=== PATIENT | male | born 1960 | race Caucasian/White ===

== ENCOUNTER → 2022-04-10 | Outpatient (CLI) | payer MEDICAID, MEDICARE ==
--- NOTE | 2022-04-10 18:09 | Diagnostic Imaging Report ---
INDICATION: Abdominal distention EXAM: 2 abdominal radiographs are performed. FINDINGS: There are pelvic phleboliths. The bowel gas pattern unremarkable. No suspicious or acute appearing abnormalities. IMPRESSION: Unremarkable abdominal radiographs. Dictated by: Dictated on workstation # [id number]
== END ==
LOC: RAD 13:22
PROVIDERS: ATTEND Family Medicine
DX: R14.0 Abdominal distension (gaseous) (principal); R10.9 Unspecified abdominal pain
CPT/HCPCS: 74018

== ENCOUNTER → 2022-06-13 | Outpatient (CLI) | payer MEDICAID ==
--- NOTE | 2022-06-13 16:03 | Diagnostic Imaging Report ---
INDICATION: PAIN COMPARISON: None. FINDINGS: 3 views of the right ankle were obtained. There is no acute fracture or dislocation. No focal osseous lesions are seen. There is moderate generalized soft tissue swelling. There are no radiopaque foreign bodies. IMPRESSION: 1. Moderate generalized soft tissue swelling, but no evidence of acute fracture or dislocation Dictated by: Dictated on workstation # [id number]
== END ==
LOC: RAD 13:58
PROVIDERS: ATTEND Family Medicine
DX: M25.471 Effusion, right ankle (principal); M25.571 Pain in right ankle and joints of right foot
CPT/HCPCS: 73610

== ENCOUNTER 2022-07-18 12:37 | Emergency (ER) | payer MEDICARE, OTHER, MEDICAID ==
[~2022-07-18] VITALS: Ht 170 cm; Wt 103.0 kg
--- NOTE | 2022-07-18 13:44 | ED General ---
General Chief Complaint: General Problems/Pain Stated Complaint: SOB | TURNED BLUE IN FACE WHILE SLEEPING Nursing Triage Note: PT ARRIVED VIA AMB FROM [facility]. STAFF STATES HIS FACE WAS PURPLE/RED WHILE SLEEPING AND WHEN THEY WOKE HIM UP HE FELL AND HIT HIS SHOULDER. STAFF REPORTS BEHAVIOR OF BEING HURT. Source of Information: Patient Exam Limitations: No Limitations History of Present Illness Date Seen by Provider: Jul 18, 2022 Time Seen by Provider: 13:41 Initial Comments Patient is a 62-year-old male who presents ED with concern for snoring, blue in the face. Patient had an episode today when he woke up from a nap. Staff at [facility] noticed patient having red purpleish face. Patient woke up and stood and fell to the ground. Patient immediately went to eat for lunch. Patient did have some shoulder pain but refused any pain at this time. Had a similar episode yesterday when he was playing blocks his face became red. They noted snoring at night and snoring through the day. Very are wanting to get a sleep study but patient will not perform the study. Patient is nonverbal. Similar episode a few weeks ago when he was sleeping his face turned purple. No known cardiac history, history of COPD or asthma. Patient vital signs stable on arrival. Allergies and Home Medications Allergies Coded Allergies: Penicillins (Verified Allergy, Unknown, 04/22/16) erythromycin ethylsuccinate (Verified Allergy, Unknown, 04/22/16) Patient Home Medication List Home Medication List Reviewed: Yes Review of Systems Review of Systems Constitutional: No chills, No diaphoresis, No malaise, No weakness EENTM: No blurred vision, No double vision Respiratory: No cough, No dyspnea on exertion Cardiovascular: No chest pain, No edema Gastrointestinal: No abdominal pain, No diarrhea, No nausea, No vomiting Genitourinary: No decreased output, No discharge Musculoskeletal: No back pain, No joint pain Skin: No change in color, No change in hair/nails Hematologic/Lymphatic: Denies Anemia All Other Systems Reviewed Negative Unless Noted: Yes Past Fllerbb-Wlhuqf-Jhbzej Hx Patient Social History Tobacco Use?: No Substance use?: No Alcohol Use?: No Physical Exam Vital Signs Vital Signs - First Documented 07/18/22 12:48 Temp 37.1 Pulse 87 Resp 16 B/P (MAP) 116/77 (90) Pulse Ox 97 O2 Delivery Room Air Capillary Refill : Less Than 3 Seconds Height, Weight, BMI Height: '" Weight: lbs. oz. kg; 35.00 BMI Method: General Appearance: No Apparent Distress, WD/WN Eyes: Bilateral Eye Normal Inspection, Bilateral Eye PERRL, Bilateral Eye EOMI HEENT: PERRL/EOMI, TMs Normal, Normal ENT Inspection, Pharynx Normal, Other Neck: Full Range of Motion, Normal Inspection, Non Tender, Supple Respiratory: Chest Non Tender, Lungs Clear, Normal Breath Sounds, No Accessory Muscle Use, No Respiratory Distress Cardiovascular: Regular Rate, Rhythm, No Edema, No Gallop, No JVD Gastrointestinal: Normal Bowel Sounds, No Organomegaly, No Pulsatile Mass, Non Tender Extremity: Normal Capillary Refill, Normal Inspection, Normal Range of Motion, Non Tender Neurologic/Psychiatric: Alert, Oriented x3, No Motor/Sensory Deficits, Normal Mood/Affect, recovery rn II-XII Norm as Tested Progress/Results/Core Measures Suspected Sepsis SIRS Temperature: Pulse: 87 Respiratory Rate: 16 Laboratory Tests 07/18/22 14:00: White Blood Count 5.3 Blood Pressure 116 /77 Mean: 90 Laboratory Tests 07/18/22 14:00: Creatinine 1.12, Platelet Count 181, Total Bilirubin 0.4 Results/Orders Lab Results Laboratory Tests Test 07/18/22 14:00 Range/Units White Blood Count 5.3 4.3-11.0 10^3/uL Red Blood Count 4.53 4.30-5.52 10^6/uL Hemoglobin 14.5 13.3-17.7 g/dL Hematocrit 43 40-54 % Mean Corpuscular Volume 95 80-99 fL Mean Corpuscular Hemoglobin 32 25-34 pg Mean Corpuscular Hemoglobin Concent 34 32-36 g/dL Red Cell Distribution Width 13.2 10.0-14.5 % Platelet Count 181 130-400 10^3/uL Mean Platelet Volume 9.3 9.0-12.2 fL Immature Granulocyte % (Auto) 1 % Neutrophils (%) (Auto) 50 42-75 % Lymphocytes (%) (Auto) 38 12-44 % Monocytes (%) (Auto) 10 0-12 % Eosinophils (%) (Auto) 1 0-10 % Basophils (%) (Auto) 1 0-10 % Neutrophils # (Auto) 2.7 1.8-7.8 10^3/uL Lymphocytes # (Auto) 2.0 1.0-4.0 10^3/uL Monocytes # (Auto) 0.5 0.0-1.0 10^3/uL Eosinophils # (Auto) 0.1 0.0-0.3 10^3/uL Basophils # (Auto) 0.1 0.0-0.1 10^3/uL Immature Granulocyte # (Auto) 0.0 0.0-0.1 10^3/uL Sodium Level 142 135-145 MMOL/L Potassium Level 3.9 3.6-5.0 MMOL/L Chloride Level 114 H 98-107 MMOL/L Carbon Dioxide Level 22 21-32 MMOL/L Anion Gap 6 5-14 MMOL/L Blood Urea Nitrogen 17 7-18 MG/DL Creatinine 1.12 0.60-1.30 MG/DL Estimat Glomerular Filtration Rate 75 BUN/Creatinine Ratio 15 Glucose Level 96 70-105 MG/DL Calcium Level 8.8 8.5-10.1 MG/DL Corrected Calcium 8.9 8.5-10.1 MG/DL Total Bilirubin 0.4 0.1-1.0 MG/DL Aspartate Amino Transf (AST/SGOT) 17 5-34 U/L Alanine Aminotransferase (ALT/SGPT) 25 0-55 U/L Alkaline Phosphatase 108 40-136 U/L Troponin I < 0.028 <0.028 NG/ML B-Type Natriuretic Peptide < 10.0 <100.0 PG/ML Total Protein 6.9 6.4-8.2 GM/DL Albumin 3.9 3.2-4.5 GM/DL My Orders Orders - LITZY BENNETT PA Cbc With Automated Diff (07/18/22 13:38) Comprehensive Metabolic Panel (07/18/22 13:38) Bnp Arthur (07/18/22 13:38) Troponin I [facility] (07/18/22 13:38) Chest 1 View, Ap/Pa Only (07/18/22 13:38) Ekg Tracing (07/18/22 15:01) Vital Signs/I&O 07/18/22 07/18/22 12:48 15:09 Temp 37.1 Pulse 87 Resp 16 B/P (MAP) 116/77 (90) 138/82 Pulse Ox 97 O2 Delivery Room Air Capillary Refill : Less Than 3 Seconds Blood Pressure Mean: 90 ECG Comment Sinus rhythm, atrial premature complexes, right bundle branch block 85 bpm, QRS duration 144 MS, QTc 495. Departure Communication (PCP) Patient presents the ED from [facility] with staff for concern for change in skin color while sleeping this afternoon. Similar episode 2 weeks ago. Reviewed previous ER visits, H&P's, lab testing. Currently following Dr. Day. Patient is nonverbal. He has no current complaints according to staff. As he is able to shake his head yes or no. Vital signs stable. Cardiac work-up with CBC, CMP, troponin, EKG and chest x-ray. Did have some subtle snoring but staff states this is chronic. Would consider class III mallampati score. No stridor. No evidence of Robel angina. patient EKG normal sinus rhythm without evidence of ST elevation, depression, arrhythmia. Right bundle branch block 85 bpm. No lengthened QTc, TX interval. CBC, CMP unremarkable. Troponin and BNP was otherwise unremarkable. Moving all extremities without difficulties. Currently at his normal baseline. Concerning that patient may have some form of sleep apnea especially the snoring with sleeping and potential reddish purpleish face with napping. Denies of any syncope. Afebrile. Recommend sleep study. Recommend outpatient follow-up with primary care physician. No known cardiac history. Currently in no acute distress. Return precautions were discussed with staff. Impression Primary Impression: Snoring Disposition: 01 HOME, SELF-CARE Condition: Stable Departure-Patient Inst. Decision time for Depature: 14:56 Referrals: PALAK DAY MD (PCP/Family) Primary Care Physician Patient Instructions: Snoring Add. Discharge Instructions: These the follow-up for sleep study. Follow-up with your primary care physician for further evaluation. Cardiac work-up unremarkable All discharge instructions reviewed with patient and/or family. Voiced understanding. LITZY BENNETT Jul 18, 2022 13:44
[2022-07-18 14:07] LABS: BASOPHILS # (AUTO) 0.1 10^3/uL (0.0-0.1); BASOPHILS % (AUTO) 1 % (0-10); EOSINOPHILS # (AUTO) 0.1 10^3/uL (0.0-0.3); EOSINOPHILS % (AUTO) 1 % (0-10); HEMATOCRIT 43 % (40-54); HEMOGLOBIN 14.5 g/dL (13.3-17.7); LYMPHOCYTES % (AUTO) 38 % (12-44); MEAN CORPUSCULAR HEMOGLOBIN 32 pg (25-34); MEAN CORPUSCULAR HGB CONC 34 g/dL (32-36); MEAN CORPUSCULAR VOLUME 95 fL (80-99); MEAN PLATELET VOLUME 9.3 fL (9.0-12.2); MONOCYTES # (AUTO) 0.5 10^3/uL (0.0-1.0); MONOCYTES % (AUTO) 10 % (0-12); NEUTROPHILS # (AUTO) 2.7 10^3/uL (1.8-7.8); NEUTROPHILS % (AUTO) 50 % (42-75); PLATELET COUNT 181 10^3/uL (130-400); WHITE BLOOD COUNT 5.3 10^3/uL (4.3-11.0)
[2022-07-18 14:16] LABS: ALBUMIN 3.9 GM/DL (3.2-4.5); CHLORIDE 114 MMOL/L (98-107); POTASSIUM 3.9 MMOL/L (3.6-5.0); SODIUM 142 MMOL/L (135-145)
[2022-07-18 14:17] LABS: CALCIUM 8.8 MG/DL (8.5-10.1)
[2022-07-18 14:18] LABS: GLUCOSE 96 MG/DL (70-105); TOTAL PROTEIN 6.9 GM/DL (6.4-8.2)
[2022-07-18 14:19] LABS: CARBON DIOXIDE 22 MMOL/L (21-32)
--- NOTE | 2022-07-18 14:19 | Diagnostic Imaging Report ---
INDICATION: Shortness of breath. Frontal chest obtained at 2:16 p.m. FINDINGS: Heart and mediastinal silhouette are normal in appearance. The lungs are clear. There is no pneumothorax or pleural fluid. IMPRESSION: Negative chest. Dictated by: Dictated on workstation # [id number]
[2022-07-18 14:20] LABS: BILIRUBIN,TOTAL 0.4 MG/DL (0.1-1.0)
[2022-07-18 14:22] LABS: ALKALINE PHOSPHATASE 108 U/L (40-136); CREATININE SERUM 1.12 MG/DL (0.60-1.30); GFR ESTIMATED 75
[2022-07-18 14:23] LABS: BUN/CREATININE RATIO 15
[2022-07-18 14:25] LABS: ALANINE AMINOTRANSFERASE 25 U/L (0-55)
[2022-07-18 15:09] VITALS: BP 138/82
== END 2022-07-18 15:09 | disposition home or self-care (01) ==
LOC: EDUNIT# 12:37 → ER 12:40
DX: R06.83 Snoring (principal)
CPT/HCPCS: 36415; 71045; 80053; 83880; 84484; 85025; 93005

== ENCOUNTER 2023-03-04 08:58 | Outpatient (CLI) | payer MEDICARE, MEDICAID | END 2023-03-04 09:25 | LOC: SLEEP 08:58 | PROVIDERS: ATTEND Family Medicine | DX: G47.10 Hypersomnia, unspecified (principal); R06.83 Snoring; R06.81 Apnea, not elsewhere classified | CPT/HCPCS: G0399 ==